=== PATIENT | male | born 1965 | race Caucasian/White ===

== ENCOUNTER 2021-03-26 12:56 | Emergency (ER) | payer OTHER, SELFPAY ==
[2021-03-26 13:00] VITALS: BP 132/80; PULSE 80; RESP 18; TEMP 36.8; O2SAT 99; BMI 28.2
--- NOTE | 2021-03-26 13:13 | DI.RAD.S_ITS ---
PROCEDURE: XR WRIST LT MIN 3V INDICATIONS: left wrist pain after injury, heard a pop TECHNIQUE: 4 views of the wrist were acquired. COMPARISON: None. FINDINGS: Bones: No fractures or dislocations. No suspicious bony lesions. Scaphoid view: Scaphoid appears intact. Soft tissues: No suspicious soft tissue calcifications. IMPRESSION: No acute osseous abnormalities. If clinical symptoms persist or clinical suspicion for internal derangement is high, MRI is suggested for further evaluation. Dictated by: Romana Yeager M.D. on 03/26/2021 at 13:33 Approved by: Romana Yeager M.D. on 03/26/2021 at 13:34
--- NOTE | 2021-03-26 13:44 | ED_ITS ---
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 He was working with a jackhammer when the Eric hammer fell over and he stated that he twisted his left wrist in his left thumb. Patient does not describe any abdominal pain or shoulder pain. Reports no elbow pain. Has not tried anything for symptoms prior to arrival. Review of Systems Musculoskeletal Musculoskeletal: Reports system reviewed and no additional complaints, except as documented and Reports as per HPI Integumentary/Breasts Skin/Breast: Reports system reviewed and no additional complaints, except as documented and Reports as per HPI Neurologic Neurologic: Reports system reviewed and no additional complaints, except as documented and Reports as per HPI Hematologic/Lymphatic On Anticoagulants: No Patient History Medical History Patient denies medical problems Social History Smoking Status: Never smoker Smoking Status: Never smoker Substance Use Type: does not use Exam Initial Vital Signs Initial Vital Signs: Vital Signs Temperature 98.2 F 03/26/21 13:00 Pulse Rate 80 03/26/21 13:00 Respiratory Rate 18 03/26/21 13:00 Blood Pressure 132/80 03/26/21 13:00 Pulse Oximetry 99 03/26/21 13:00 Const General: cooperative, comfortable and well developed [facility] Head: normal to inspection and normocephalic Cardio Pulses: radial pulses present on the left Skin General: no rashes or lesions noted Neuro General: patient alert, patient awake and moves all extremities Sensory Exam: no sensory deficits noted Extrem Other: Patient's left elbow was unremarkable. Does have tenderness to palpation along the thenar eminence of the left thumb. No snuffbox tenderness. Patient can abduct and adduct his thumb. Can also place and in opposition however this does cause him quite a bit of discomfort. Psych Appearance: grossly normal and well kempt Procedures Orthopedic Splinting/Casting Injury #1: Side: left Upper Extremity Injury Location: wrist Upper Extremity Immobilizer: wrist splint Post splinting neuro exam: no change Post splinting vascular exam: no change Placed by: Nursing Course Orders Ordered: ED Orders 03/26/21 13:13 XR wrist LT min 3V Stat Vital Signs Vital signs: Vital Signs - 8 hr 03/26/21 13:00 Temperature 98.2 F Pulse Rate 80 Respiratory Rate 18 Blood Pressure 132/80 Pulse Oximetry 99 Medical Decision Making Imaging Data Extremity x-ray #1: Radiologist's Impression: [address] [id number] ReportSigned Patient: Hugh Cohen TMR#: [id number]: [id number]:[id number]/Sex: 55 / MDate of Service: 03/26/21Loc: EDAccession Number: [id number] Procedure: XR wrist LT min 3V Ordering Provider: Damian Plasencia D.O. PROCEDURE: XR WRIST LT MIN 3V INDICATIONS: left wrist pain after injury, heard a pop TECHNIQUE: 4 views of the wrist were acquired. COMPARISON: None. FINDINGS: Bones: No fractures or dislocations. No suspicious bony lesions. Scaphoid view: Scaphoid appears intact. Soft tissues: No suspicious soft tissue calcifications. IMPRESSION: No acute osseous abnormalities. If clinical symptoms persist or clinical suspicion for internal derangement is high, MRI is suggested for further evaluation. Dictated by: Romana Yeager M.D. on 03/26/2021 at 13:33 Approved by: Romana Yeager M.D. on 03/26/2021 at 13:34 [facility] Narrative Medical decision making narrative: Patient is neurovascularly intact. No fractures noted on the x-rays. Some concern about potential ligamentous injury based on his exam today. No snuffbox tenderness. He was placed in a removable thumb spica splint for his comfort. He was given care instructions and return precautions. He expressed understanding agreement. Discharge Plan Departure Patient Disposition: Home Clinical Impression: Left thumb sprain Activity Restrictions/Additional Instructions: use the removable splint as needed for some soft tissue rest. You can take it off to wash your hands and also to take a shower. Once he start to feel better you can take it off on a more definitive basis. If her symptoms have not improved within the next 7-10 days you will need a another x-ray. Your primary doctor can order this. Return to the emergency department for any new symptoms.
== END 2021-03-26 13:58 | disposition home or self-care (01) ==
PROVIDERS: Emergency Provider Emergency Medicine
DX: S63.602A Unspecified sprain of left thumb, initial encounter (principal); S69.92XA Unspecified injury of left wrist, hand and finger(s), initial encounter; W22.8XXA Striking against or struck by other objects, initial encounter
CPT/HCPCS: 29280; 73110; 99281; 99283

== ENCOUNTER → 2024-12-15 09:06 | Outpatient (CLI) | payer OTHER, SELFPAY ==
--- NOTE | 2024-12-15 09:10 | DI.RAD.S_ITS ---
PROCEDURE: XR LUMBAR SPINE MIN 4V INDICATIONS: BACK PAIN TECHNIQUE: 5 views of the lumbar spine were acquired, including bilateral oblique views. COMPARISON: None. FINDINGS: Bones: 5 nonrib-bearing vertebrae are present. There is normal bony alignment. No vertebral body compression fractures. No suspicious bony lesions. Mild disc height loss at all levels. Facet arthrosis of L5-S1. Soft tissues: Overlying bowel gas pattern is normal. No suspicious soft tissue calcifications. Oblique images: No pars defects. IMPRESSION: Mild, multilevel degenerative disc disease and lower lumbar facet arthrosis. Dictated by: Librado Suero M.D. on 12/15/2024 at 9:59 Approved by: Librado Suero M.D. on 12/15/2024 at 10:00
== END ==
PROVIDERS: Referring Provider Physical Medicine & Rehabilitation; Visit Provider Physical Medicine & Rehabilitation
DX: M51.369 Other intervertebral disc degeneration, lumbar region without mention of lumbar back pain or lower extremity pain (principal); M47.817 Spondylosis without myelopathy or radiculopathy, lumbosacral region; M54.9 Dorsalgia, unspecified
CPT/HCPCS: 72110

== ENCOUNTER 2024-12-19 13:52 | Outpatient (CLI) | payer OTHER, SELFPAY ==
[2024-12-19] VITALS (8 sets, daily range): BP systolic 117–136; BP diastolic 71–82; PULSE 65–75; RESP 16; TEMP 36.4; O2SAT 98–100
[2024-12-19] MEDS: MIDAZOLAM 2 MG/2 ML VIAL 1 MG IV ×2 (15:20→15:25)
[2024-12-19] MEDS: DEXAMETHASONE 10 MG/ML VIAL INJ (15:24)
[2024-12-19] MEDS: BUPIVACAINE 0.25% (PF) VIAL 2 ML INJ (15:24)
[2024-12-19] MEDS: iopamidoL 15 ML VIAL 3 ML INJ (15:25)
[2024-12-19] MEDS: BETAMETHASONE 30 MG/5 ML MDV 12 MG INJ (15:25)
--- NOTE | 2024-12-19 15:43 | P.PCN_ITS ---
Date/Time/Diagnoses Date of procedure: 12/19/24 Time of procedure: 15:43 Pre-procedure diagnosis: 1. FORAMINAL STENOSIS WITH LE SYMPTOMS Post-procedure diagnosis: same Procedure Notes Procedure: 1. FLUOROSCOPICALLY GUIDED CONTRAST CONTROLLED TRANSFORAMINAL EPIDURAL STEROID INJECTION - RIGHT L4/5 TFESI Indications: Hugh is referred for treatment of Foraminal Stenosis with Right LE Symptoms Physician: Abhinav Balderas Total Fluoroscopy time (seconds): 8 Total sedation minutes: 12 Complications: none Procedure in detail & Post-procedure care: FINDINGS Foraminal Nerve Root Compression secondary to disc disease and facet hypertrophy DESCRIPTION OF PROCEDURE Following review of allergy and review of potential side effects and complications, including, but not necessarily limited to, infection, allergic reaction, local tissue breakdown, stroke, temporary or permanent nerve injury, paralysis, and possible , the patient indicated that the patient understood and agreed to proceed. An informed consent document was signed by the patient, witnessed by a nurse, and placed in the patient's chart. Additionally, other treatment options including medications, modalities, and physical therapy were reviewed with the patient. After review of previous anaesthesic history and IV conscious sedation the patient was deemed safe to proceed with today?s procedure with IV conscious sedation as ASA class II designation. Safety time-out was performed to confirm patient ID, procedure to be performed and site of procedure. IV sedation was accomplished with a combination of 2mg of Versed was administered by the RN after DO order, titrated to patient comfort during the course of the procedure while the patient remained responsive to all verbal commands In the prone position following sterile prep and drape of the lumbar region, the right L4/5 posterior neuroforamen was identified fluoroscopically. The skin was anesthetized via a 25-gauge 1.5-inch needle with 1% lidocaine solution. At this point, a 25-gauge 3.5-inch spinal needle was atraumatically introduced and advanced under fluoroscopic guidance through the posterior right L4/5 neuroforamen to approximately the anterior aspect of the canal. Depth was confirmed on lateral view. Following negative aspiration, injection of approximately 1.5cc of Isovue 200 under live fluoroscopy in the AP view confirmed excellent flow along the nerve root, into the epidural space without vascular or intrathecal uptake observed Radiological data, including multiple fluoroscopic views of the lumbosacral spine, reveal a spinal needle at the right L4/5 posterior neuroforamen. Subsequent views show flow of contrast material flowing superiorly and inferiorly along the nerve root confirming epidural flow. Subsequently, a test dose of 1.5 cc of 0.25%marcaine solution was administered and patient was observed for two minutes for signs or symptoms of complications, including abdominal pain, shortness of breath, bilateral upper or lower extremity weakness, nausea and vomiting, prior to steroid injection. At this point, a total of 3cc or 10mg of dexamethasone and 12mg of betamethasone was injected without incident. The procedure tolerated the procedure well without signs or symptoms of complications prior to transfer to the recovery area continued monitoring without incident. The patient was then transferred to the recovery area where they were observed for an appropriate time after the injection. The patient reported a VAS score of 7 prior to the procedure and a post- procedure VAS of 0. POST OP INSTRUCTIONS The patient was provided a Pain Log to continue to record their response to the target-specific procedure prior to follow-up visit with their referring physician. Additionally, specific post-injection care instructions and a contact number to our office were provided if concerns arise regarding possible complications associated with the procedure are suspected.
== END 2024-12-19 16:00 | disposition home or self-care (01) ==
PROVIDERS: Referring Provider Physical Medicine & Rehabilitation; Visit Provider Physical Medicine & Rehabilitation
DX: M48.061 Spinal stenosis, lumbar region without neurogenic claudication (principal); M51.16 Intervertebral disc disorders with radiculopathy, lumbar region; M47.26 Other spondylosis with radiculopathy, lumbar region
CPT/HCPCS: 64483; 99152; J0702; J1100; J2250